=== PATIENT | female | born 1960 | race African-American/Black ===

== ENCOUNTER 2018-07-11 12:03 | Emergency (ER) | payer OTHER, MEDICAID ==
[~2018-07-11] VITALS: Ht 167.6 cm; Wt 128.0 kg
[2018-07-11 12:06] VITALS: BP 138/81
== END 2018-07-11 16:25 | disposition left against medical advice (07) ==
LOC: ER 12:29
DX: R07.89 Other chest pain (principal); Z53.21 Procedure and treatment not carried out due to patient leaving prior to being seen by health care provider
CPT/HCPCS: 93005